=== PATIENT | male | born 1985 | race Caucasian/White ===

== ENCOUNTER 2016-08-14 18:49 | Emergency (ER) | payer SELFPAY ==
[2016-08-14] MEDS ORDERED: LIDOCAINE 1% INJ-PF (10 MG/ML) 30 ML SDV ONE (18:57)
[2016-08-14] MEDS ORDERED: CEFAZOLIN 2 GM/D5W RTU 2 GM/50 ML RTUPB IV ONE (18:58)
[2016-08-14] MEDS ORDERED: FENTANYL CITRATE INJ/PF 100 MCG/2 ML AMPUL ONE ×2 (19:02→20:24)
[2016-08-14] MEDS ORDERED: NORMAL SALINE 1000 ML 1,000 ML IV ONE (19:32)
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
[2016-08-14 21:22] VITALS: BP 131/56
[2016-08-14] MEDS ORDERED: HYDROCODONE/ACETAMINOPHEN 5-325 MG 6 TAB/DSPK PO PRN (21:43)
[2016-08-14] MEDS ORDERED: HYDROCODONE/ACETAMINOPHEN 5-325 MG 6 TAB/DSPK ONE (21:45)
== END 2016-08-14 21:30 | disposition home or self-care (01) ==
LOC: ER 18:49
PROC: 0HQ0XZZ Repair Scalp Skin, External Approach (ICD-10-PCS; principal; 2016-08-14)
DX: S01.01XA Laceration without foreign body of scalp, initial encounter (principal); X99.8XXA Assault by other sharp object, initial encounter; F17.200 Nicotine dependence, unspecified, uncomplicated
CPT/HCPCS: 70450; 99285

== ENCOUNTER 2016-08-21 21:17 | Emergency (ER) | payer SELFPAY ==
[2016-08-21] MEDS ORDERED: ACETAMINOPHEN 325 MG TABLET PO ONE (21:51)
--- NOTE | 2016-08-21 21:51 | ER Document Report ---
ED Medical Screen (RME) - General Stated Complaint: SUTURE REMOVAL/HEAD PAIN Notes: Patient is a 31-year-old female presents emergency Department complaining of wound check,, headache and nausea. Patient was seen here about a week ago for head injury requiring suture closer for lacerations. Wounds healing well, no evidence of drainage, erythema. Scalp laceration with possible retained hematoma. I have greeted and performed a rapid initial assessment of this patient. A comprehensive ED assessment and evaluation of the patient, analysis of test results and completion of the medical decision making process will be conducted by additional ED providers. TRAVEL OUTSIDE OF THE [place] IN LAST 30 DAYS: No - Related Data Allergies/Adverse Reactions: No Known Drug Allergies Allergy (Verified 08/21/16 21:48) Past Medical History Neurological Medical History: Reports: Hx Seizures Musculoskeltal Medical History: Reports Hx Arthritis, Reports Hx Musculoskeletal Deformity, Reports Hx Musculoskeletal Trauma Traumatic Medical History: Reports: Hx Fractures Past Surgical History: Reports: Hx Nose Surgery, Hx Orthopedic Surgery - hand - Immunizations Immunizations up to date: Yes Hx Diphtheria, Pertussis, Tetanus Vaccination: No Physical Exam - Vital signs Vitals: Temp Pulse Resp BP Pulse Ox 98.6 F 80 16 142/93 H 97 08/21/16 21:27 08/21/16 21:27 08/21/16 21:27 08/21/16 21:27 08/21/16 21:27 Course - Vital Signs Vital signs: Temp Pulse Resp BP Pulse Ox 98.6 F 80 16 142/93 H 97 08/21/16 21:27 08/21/16 21:27 08/21/16 21:27 08/21/16 21:27 08/21/16 21:27
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
[2016-08-22] MEDS ORDERED: ONDANSETRON 4 MG TAB.RAPDIS PO ONE (00:13)
[2016-08-22 00:58] VITALS: BP 122/88
== END 2016-08-22 00:55 | disposition home or self-care (01) ==
LOC: ER 21:17
DX: Z48.02 Encounter for removal of sutures (principal); S00.83XD Contusion of other part of head, subsequent encounter; X58.XXXD Exposure to other specified factors, subsequent encounter
CPT/HCPCS: S0119

== ENCOUNTER 2017-11-02 03:54 | Emergency (ER) | payer OTHER ==
[2017-11-02] MEDS ORDERED: LIDOCAINE 1% INJ-PF (10 MG/ML) 30 ML SDV INJ ONE (04:10)
[2017-11-02] MEDS ORDERED: LIDOCAINE 4%/TETRACAINE 0.5%/EPI 0.18% 5 ML TOPICAL SOLN TOP ONE (04:53)
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
[2017-11-02 06:04] VITALS: BP 131/74
== END 2017-11-02 06:02 | disposition home or self-care (01) ==
LOC: ER 03:54
DX: S91.012A Laceration without foreign body, left ankle, initial encounter (principal); W26.0XXA Contact with knife, initial encounter; Y92.149 Unspecified place in prison as the place of occurrence of the external cause
CPT/HCPCS: 99283

== ENCOUNTER 2019-03-09 12:29 | Emergency (ER) | payer SELFPAY ==
[2019-03-09 12:34] VITALS: BP 145/96
--- NOTE | 2019-03-09 12:52 | ER Document Report ---
ED Medical Screen (RME) - General Chief Complaint: Anxiety Stated Complaint: ANXIOUS, AGGRAVATED STATE Time Seen by Provider: 03/09/19 12:48 Mode of Arrival: Ambulatory Information source: Patient Notes: 33-year-old male to ED for extreme anxiety with agitation. He states he does not want to kill anybody he might want to slap somebody but does not want to hurt himself. He states he does smoke a pack a day does not drink or do any drugs. He does work in construction lives with friends. Only medical history is anxiety and and a injured knee. I have greeted and performed a rapid initial assessment of this patient. A comprehensive ED assessment and evaluation of the patient, analysis of test results and completion of medical decision making process will be conducted by an additional ED providers. TRAVEL OUTSIDE OF THE [place] IN LAST 30 DAYS: No - Related Data Allergies/Adverse Reactions: No Known Drug Allergies Allergy (Verified 08/21/16 21:48) Past Medical History Neurological Medical History: Reports: Hx Seizures Renal/ Medical History: Denies: Hx Peritoneal Dialysis Musculoskeltal Medical History: Reports Hx Arthritis, Reports Hx Musculoskeletal Deformity, Reports Hx Musculoskeletal Trauma Traumatic Medical History: Reports: Hx Fractures Past Surgical History: Reports: Hx Nose Surgery, Hx Orthopedic Surgery - hand - Immunizations Immunizations up to date: Yes Hx Diphtheria, Pertussis, Tetanus Vaccination: No Physical Exam - Vital signs Vitals: Temp Pulse Resp BP Pulse Ox 98.1 F 70 20 145/96 H 99 03/09/19 12:33 03/09/19 12:33 03/09/19 12:33 03/09/19 12:33 03/09/19 12:33 Course - Vital Signs Vital signs: Temp Pulse Resp BP Pulse Ox 98.1 F 70 20 145/96 H 99 03/09/19 12:33 03/09/19 12:33 03/09/19 12:33 03/09/19 12:33 03/09/19 12:33 Doctor's Discharge - Discharge Instructions: Anxiety ([facility])
--- NOTE | 2019-03-09 13:44 | PSYCHOLOGICAL NOTE ---
Psych Note - Psych Note Date seen by psych provider: 03/09/19 Time seen by psych provider: 13:18 - Chart review at 1318. Discussion with ED Physician at 1333. Psych Note: Presenting Problem: Anxiety for several days which has increased his agitation, said would pull hair out if he had any, fidgety, on probation with ankle bracelet, denied HI but said would slap someone, denied SI. Attending ED Physician noted patient admitted to meth use and recent ly quitting, had anxiety prior to the meth use, stress about girlfriend being in nursing home. Impression/Plan: Patient left AMA. This clinician conducted chart review and then had discussion with ED Physician (when patient left).
--- NOTE | 2019-03-09 14:40 | ER Document Report ---
Entered by CRISTINE JIMENEZ SCRIBE 03/09/19 1338 Acting as scribe for:MANUEL ORELLANA MD ED Psych Disorder / Suicide - General Chief Complaint: Anxiety Stated Complaint: ANXIOUS, AGGRAVATED STATE Time Seen by Provider: 03/09/19 12:48 Mode of Arrival: Ambulatory Information source: Patient Notes: 33-year-old male presents to the emergency department today with complaints of anxiety. Patient states he was recently released from group home and his girlfriend recently got thrown in snf. Patient states he has spent over $350 over the last 2 weeks with phone calls to her and giving her money for the canteen. Patient states he has a lot of stressors in his life that have caused him to become more anxious than normal. Patient states he has had anxiety problems his whole life, stating he has had anxiety this bad or worse as a child. Patient states he quit using methamphetamine about a week ago. Patient denies homicidal or suicidal ideation. TRAVEL OUTSIDE OF THE [place] IN LAST 30 DAYS: No - Related Data Allergies/Adverse Reactions: No Known Drug Allergies Allergy (Verified 08/21/16 21:48) Past Medical History - General Information source: Patient - Social History Smoking Status: Current Every Day Smoker Cigarette use (# per day): Yes - 1-2 ppd Smoking Education Provided: No Frequency of alcohol use: None Drug Abuse: Methamphetamine Lives with: Alone Family History: Reviewed & Not Pertinent, Other - Unable to be obtained Patient has suicidal ideation: No Patient has homicidal ideation: No Neurological Medical History: Reports: Hx Seizures Musculoskeletal Medical History: Reports Hx Arthritis, Reports Hx Musculoskeletal Deformity, Reports Hx Musculoskeletal Trauma Psychiatric Medical History: Reports: Hx Anxiety Traumatic Medical History: Reports: Hx Fractures Past Surgical History: Reports: Hx Nose Surgery, Hx Orthopedic Surgery - hand - Immunizations Immunizations up to date: Yes Hx Diphtheria, Pertussis, Tetanus Vaccination: No Review of Systems - Review of Systems Constitutional: No symptoms reported EENT: No symptoms reported Cardiovascular: No symptoms reported Respiratory: No symptoms reported Gastrointestinal: No symptoms reported Genitourinary: No symptoms reported Male Genitourinary: No symptoms reported Musculoskeletal: No symptoms reported Skin: No symptoms reported Hematologic/Lymphatic: No symptoms reported Neurological/Psychological: See HPI, Anxiety. denies: Homicidal ideation, Suicidal ideation -: Yes All other systems reviewed and negative Physical Exam - Vital signs Vitals: Temp Pulse Resp BP Pulse Ox 98.1 F 70 20 145/96 H 99 03/09/19 12:33 03/09/19 12:33 03/09/19 12:33 03/09/19 12:33 03/09/19 12:33 - Notes Notes: Physical Exam: General: Alert, appears well. HEENT: Normocephalic. Atraumatic. PERRLA. Extraocular movements intact. Oropharynx clear. Neck: Supple. Respiratory: No respiratory distress. Abdominal: Normal Inspection. No distension. Extremities: Moves all four extremities. Right ankle electrical timing device calibrator device consistent with recent release from group home. Neurological: Normal cognition. AAOx4. Normal speech. Psychological: Anxious. Skin: Warm. Dry. Normal color. Course - Re-evaluation Re-evalutation: 03/09/19 14:41 When I left the patient's room, I went to find the psych worker. While speaking with her, and nurse came to tell me that the patient walked out right after I left the room. He stated he was not going to wait around to talk with anyone. - Vital Signs Vital signs: Temp Pulse Resp BP Pulse Ox 98.1 F 70 20 145/96 H 99 03/09/19 12:33 03/09/19 12:33 03/09/19 12:33 03/09/19 12:33 03/09/19 12:33 Discharge - Discharge Clinical Impression: Anxiety Depression Qualifiers: Depression Type: unspecified Qualified Code(s): F32.9 - Major depressive disorder, single episode, unspecified Condition: Stable Disposition: ELOPED Instructions: Anxiety ([facility]) Scribe Attestation: 03/09/19 14:40 I personally performed the services described in the documentation, reviewed and edited the documentation which was dictated to the scribe in my presence, and it accurately records my words and actions. I personally performed the services described in the documentation, reviewed and edited the documentation which was dictated to the scribe in my presence, and it accurately records my words and actions.
== END 2019-03-09 13:35 | disposition left against medical advice (07) ==
LOC: ER 12:29
DX: F41.9 Anxiety disorder, unspecified (principal); F32.9 Major depressive disorder, single episode, unspecified; F17.210 Nicotine dependence, cigarettes, uncomplicated; F15.10 Other stimulant abuse, uncomplicated; Z53.20 Procedure and treatment not carried out because of patient's decision for unspecified reasons
CPT/HCPCS: 99283